=== PATIENT | male | born 1990 | race Caucasian/White ===

== ENCOUNTER 2025-03-23 05:38 | Day surgery (SDC) | payer OTHER ==
[2025-03-22 13:31] VITALS: BP 140/100
[2025-03-22 14:28] LABS: BASO % 0.4 % (0.1-1.2); EOS # 0.14 (0.04-0.54); EOS % 1.5 % (0.7-7.0); LYMPH # 1.27 (1.18-3.74); LYMPH % 13.4 % (19.3-53.1); MEAN PLATELET VOLUME 10.90 fl (9.4-12.4); MONO # 0.66 (0.24-0.82); MONO % 7.0 % (4.7-12.5); NEUT # 7.33 (1.56-6.13); NEUT % 77.4 % (34.0-71.1); RED CELL DISTRIBUTION WIDTH 12.2 % (11.6-14.4)
[2025-03-22 14:30] LABS: URINE APPEARANCE Clear; URINE BILIRRUBIN Negative (NEGATIVE); URINE BLOOD Negative; URINE COLOR Dark Yellow; URINE GLUCOSE Negative (NEGATIVE); URINE KETONE 15 (NEGATIVE); URINE LEUKOCYTE Negative; URINE NITRATE Negative; URINE PROTEIN 30 (NEGATIVE); URINE UROBILINOGEN 1.0 E.U./dl
[2025-03-22 14:33] LABS: URINE BACTERIA 11.9 uL (0.0-1933); URINE EPITHELIAL CELLS 6.9 uL (0.0-38.8); URINE WBC 4.4 uL (0.0-23.2)
[2025-03-22 14:35] LABS: URINE CAST 1.17 uL (0.0-1.40); URINE RBC 1.7 uL (0.0-20.8)
[2025-03-22 14:51] LABS: INR 1.06
[2025-03-22 14:54] LABS: BUN CREA RATIO 12.0 (7.0-25.0); CREATININE SERUM 1.08 mg/dL (0.70-1.30); GFR 77.36; GLUCOSE FASTING 107.0 mg/dL (65-100); OSMOLALITY SERUM 282.0 MOSM/KG (275-295)
[~2025-03-23] VITALS: Ht 185.4 cm; Wt 104.3 kg
[~2025-03-23 05:38] MED LIST: CLARITIN10 M1 PO; ZESTRIL20 MG PO
[2025-03-23] MEDS ORDERED: TRANEXAMIC ACID 100MG/1ML (1000MG) AMPUL IV ONE (17:00)
[2025-03-23] MEDS ORDERED: ISOPROPYL ALCOHOL 30 ML OUNCE TOP ONE (17:00)
[2025-03-23] MEDS ORDERED: CEFAZOLIN SODIUM 1,000 MG VIAL IV ONE (17:00)
[2025-03-23] MEDS ORDERED: DUI500 PO (19:16)
[2025-03-23] MEDS ORDERED: PERCOCET 5-3251 EACH PO (19:16)
[2025-03-23] MEDS ORDERED: ASA325 M1 PO (19:16)
[2025-03-23] MEDS ORDERED: OxyCODONE HCL 5 MG TABLET (ROXICODONE) PO ONE (20:15)
[2025-03-23] MEDS ORDERED: hydrALAZINE HCL 20 MG VIAL IV ONE (20:15)
== END 2025-03-23 22:15 | disposition home or self-care (01) ==
LOC: CIR.AMB 05:38
PROVIDERS: ATTEND Orthopaedic Surgery
DX: S82.842A Displaced bimalleolar fracture of left lower leg, initial encounter for closed fracture (principal); S93.492A Sprain of other ligament of left ankle, initial encounter
CPT/HCPCS: 27814; 27612; L8699